=== PATIENT | male | born 1960 | race Caucasian/White ===

== ENCOUNTER 2018-07-26 05:32 | Emergency (ER) | payer BC ==
[~2018-07-26] VITALS: Ht 175.3 cm; Wt 85.4 kg
[2018-07-26 05:37] VITALS: Ht 175.3 cm; Wt 85.4 kg
[2018-07-26 06:49] LABS: BASOPHIL % 0.4 % (0-2); PLATELET COUNT 190 x10^3mcL (130-400)
[2018-07-26 06:50] LABS: RED CELL DISTRIBUTION WIDTH 15.4 % (11.5-14.5)
[2018-07-26 06:56] LABS: UA SPECIFIC GRAVITY 1.025 (1.005-1.035); microscopic required? YES; urine erythrocyte 2+ (NEGATIVE)
[2018-07-26 07:07] LABS: AMPHETAMINE QUAL UR NONE DETECTED (See below)
[2018-07-26 07:11] LABS: CARBON DIOXIDE 25.9 mmol/L (21-32); CHLORIDE SERUM 103 mmol/L (98-107); CREATININE SERUM 1.1 mg/dL (0.7-1.3); GFR1 > 60 mL/min; GLUCOSE SERUM 89 mg/dL (74-106); POTASSIUM SERUM 3.5 mmol/L (3.5-5.1); SODIUM SERUM 139 mmol/L (136-145)
[2018-07-26 07:26] LABS: FREE T4 1.1 ng/dL (0.76-1.46); FREE THYROXINE INDEX 3.2 ug/dL (1.4-4.5); T4(THYROXINE) 8.8 ug/dL (4.7-13.3)
[2018-07-26 07:30] LABS: ALBUMIN 3.7 g/dL (3.4-5.0); ALKALINE PHOSPHATASE 74 U/L (46-116); ALT/SGPT 33 U/L (16-63); AST/SGOT 27 U/L (15-37); LIPASE 347 IU/L (73-393); TOTAL PROTEIN, SERUM 7.1 g/dL (6.4-8.2)
[2018-07-26 08:27] LABS: T3 TOTAL 1.21 ng/mL
[2018-07-26 10:36] VITALS: BP 120/65
== END 2018-07-26 10:36 | disposition home or self-care (01) ==
LOC: ED 05:32
PROVIDERS: Emergency Medicine
DX: R53.1 Weakness (principal); E86.0 Dehydration; K57.90 Diverticulosis of intestine, part unspecified, without perforation or abscess without bleeding; N28.1 Cyst of kidney, acquired; K40.20 Bilateral inguinal hernia, without obstruction or gangrene, not specified as recurrent; G89.29 Other chronic pain; I10 Essential (primary) hypertension; E11.9 Type 2 diabetes mellitus without complications; F32.9 Major depressive disorder, single episode, unspecified
CPT/HCPCS: 84439; J2405; J7030